=== PATIENT | female | born 1940 | race Caucasian/White ===

== ENCOUNTER → 2024-06-01 14:02 | Outpatient (REF) | payer MEDICARE, SELFPAY | LOC: WDC 14:02 | DX: R92.8 Other abnormal and inconclusive findings on diagnostic imaging of breast (principal) | CPT/HCPCS: 77062; 77066 ==

== ENCOUNTER → 2025-04-01 15:19 | Outpatient (REF) | payer MEDICARE, SELFPAY | LOC: HWRAD 15:19 | PROVIDERS: ATTENDING PHYSICIAN Nurse Practitioner | DX: R05.3 Chronic cough (principal); R09.82 Postnasal drip | CPT/HCPCS: 71046 ==